=== PATIENT | female | born 2000 | race Caucasian/White ===

== ENCOUNTER 2023-03-18 19:56 | Emergency (ER) | payer BC, SELFPAY ==
--- NOTE | ~2023-03-18 | CT_ITS ---
EXAMINATION: CT facial bones wo con DATE: 03/18/2023 21:27 INDICATION: softball to nose . TECHNIQUE: Computed tomography (CT) of the facial bones and maxillofacial region was performed withou t intravenous contrast. Automated exposure control and iterative reconstruction technique were employ ed. The dose-length product was 273.42 mGy-cm. COMPARISON: None. FINDINGS: Soft Tissues: Soft tissue swelling and laceration over the nose. Facial bones: Mildly depressed nasal bone fractures. No lytic or blastic process. Eyes: The globes are intact. The soft tissue planes of the orbits are maintained. Paranasal Sinuses: The visualized aerated spaces are clear. Left ryan bullosa with rightward osseo us septal deviation. Foreign Bodies: No radiopaque foreign bodies. Other Findings: None. IMPRESSION: Mildly depressed nasal bone fractures. Reviewed, dictated and finalized at location K.
[2023-03-18 20:04] VITALS: BP 130/90; PULSE 76; RESP 16; TEMP 36.7; O2SAT 100
--- NOTE | 2023-03-18 21:14 | ED.GENADULT ---
HPI - General Adult General Chief complaint: Head Injury Stated complaint: hit in face with softball Time Seen by Provider: 03/18/23 20:52 Source: patient Mode of arrival: ambulatory Limitations: no limitations History of Present Illness HPI narrative: This is a 22-year-old female who presents to the ED with chief complaint of a softball injury occurring around 1930 this evening. Patient states that she was hit in the face with a softball. She reports she was fielding a ball that was hit off the bat and took a weird hop and hit her in the bridge of the nose. She reports laceration and that someone at the game was able to Steri-Strip the wound. Denies any LOC. Denies lightheadedness, dizziness, vision changes, pain with eye movements, numbness, weakness. Denies any further site of pain or injury. Related Data Allergies Allergy/AdvReac Type Severity Reaction Status Date / Time No Known Allergies Allergy Verified 03/18/23 22:33 Review of Systems Review of Systems: All systems as dictated in HPI Exam Narrative: GENERAL: Well-appearing, well-nourished, and in no acute distress. HEAD: Normocephalic, atraumatic. EYES: PERRLA and EOMI. ENT: Mild tenderness to the bridge of the nose and frontal sinus area. Minimal bruising. No obvious deformity. Small 1 cm laceration to the bridge of the nose. Nares clear, no rhinorrhea or epistaxis. Mucous membranes moist. Oropharynx without tonsillar hypertrophy exudate or other lesions. No hemotympanum. No raccoon's eyes or bray sign. NECK: Supple. No adenopathy or masses. CHEST: No respiratory distress. Clear to auscultation. No wheezes rales or rhonchi HEART: Regular rate and rhythm. No murmur heard. Normal peripheral pulses. ABDOMEN: Soft, nontender, nondistended, normal active bowel sounds. MSK: Normal range of motion. No edema. SKIN: See above NEURO: Alert and oriented x3. No focal deficits. PSYCH: Normal mood and affect. Course Vital Signs Vital signs: Vital Signs Temperature 98.1 F 03/18/23 20:04 Pulse Rate 76 03/18/23 20:04 Respiratory Rate 16 03/18/23 20:04 Blood Pressure 130/90 03/18/23 20:04 Pulse Oximetry 100 03/18/23 20:04 Oxygen Delivery Room Air 03/18/23 20:04 Temperature 98.1 F 03/18/23 20:04 Pulse Rate 76 03/18/23 20:04 Respiratory Rate 16 03/18/23 20:04 Blood Pressure 130/90 03/18/23 20:04 Pulse Oximetry 100 03/18/23 20:04 Oxygen Delivery Room Air 03/18/23 20:04 Procedures Laceration Laceration 1: Date: 03/19/23 Time: 22:00 Site: face (Nose) Size (cm): 1 Description: linear Depth: simple, single layer Local Anesthetic: none Pre-repair: wound explored and irrigated extensively ====== Skin Level ====== Skin layer closed with: dermabond ====== Subcutaneous Layer ====== ====== Muscle Layer ====== ====== Tendon Layer ====== Medical Decision Making MDM Narrative Medical decision making narrative: This is a 22-year-old female who presents to the ED with chief complaint of of a facial injury that occurred around 1930 tonight. Playing softball and had a softball come up off the ground and hit her directly in the nose. Vitals are normal. Exam shows mild swelling to the bridge of the nose along with a [address] facial bones was ordered and shows Mildly depressed nasal bone fractures. Laceration was repaired with Dermabond here. Instructions given regarding precautions with nasal bone fractures. She would like to control pain with Tylenol and ibuprofen at home. ENT referral given. Pt will be discharged in stable condition. Return precautions given and supportive measures discussed. Pt is understanding and agreeable with plan for discharge and follow-up with ENT Vital Signs Vital Signs: Vital Signs Temperature 98.1 F 03/18/23 20:04 Pulse Rate 76 03/18/23 20:04 Respiratory Rate 16 03/18
[2023-03-18] MEDS: IBUPROFEN 600 MG TABLET PO (22:34)
== END 2023-03-18 22:41 | disposition home or self-care (01) ==
PROVIDERS: Emergency Provider Physician Assistant
DX: S02.2XXA Fracture of nasal bones, initial encounter for closed fracture (principal); S01.21XA Laceration without foreign body of nose, initial encounter; W21.07XA Struck by softball, initial encounter
CPT/HCPCS: 12011; 70486; 99284; A9270